=== PATIENT | male | born 1995 | race Asian ===

== ENCOUNTER 2017-06-21 06:12 | Emergency (ER) | payer OTHER ==
[~2017-06-21] VITALS: Ht 170.2 cm; Wt 56.7 kg
[2017-06-21] MEDS ORDERED: KLONOPIN0.5 MG ORAL (06:19)
[2017-06-21 06:21] VITALS: BP 124/86
[2017-06-21 06:40] VITALS: BP 124/86
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
== END 2017-06-21 06:55 | disposition home or self-care (01) ==
LOC: EMR 06:47
DX: F10.129 Alcohol abuse with intoxication, unspecified (principal); V43.52XA Car driver injured in collision with other type car in traffic accident, initial encounter; Y92.410 Unspecified street and highway as the place of occurrence of the external cause; F41.9 Anxiety disorder, unspecified; R51 Headache
CPT/HCPCS: 99283